=== PATIENT | male | born 1985 | race Two or more races ===

== ENCOUNTER → 2016-08-24 | Outpatient (CLI) | payer BC ==
[2016-08-24 15:58] LABS: Urine RBC None Seen /hpf (0 - 3)
[2016-08-24 16:22] LABS: Urine Bilirubin Negative (Negative); Urine Blood Negative /uL (Negative); Urine Color Yellow (Yellow); Urine Glucose Normal (Normal); Urine Ketone Negative (Negative); Urine Nitrite Negative (Negative); Urine Urobilinogen Normal (Negative)
[2016-08-24 16:27] LABS: BUN/Creatinine Ratio 16.4; Calcium 8.6 mg/dL (8.5-10.1); Potassium 3.6 mmol/L (3.5-5.1); Total Protein 7.7 g/dL (6.4-8.2); Uric Acid 7.4 mg/dL (3.5-7.2)
[2016-08-24 16:39] LABS: Basophils # (auto) 0 uL; Basophils % (auto) 0.7 % (0.0-2.0); Eosinophils # (auto) 0.2 uL; Eosinophils % (auto) 3.1 % (0.0-7.0); Hematocrit 43.8 % (41.0-53.0); Hemoglobin 14.9 g/dL (13.5-17.5); Lymphocytes # (auto) 2.2 uL; Lymphocytes % (auto) 38.8 % (10.0-50.0); Mean Corpuscular Hemoglobin 30.1 pg (28.0-32.0); Mean Corpuscular Hgb Conc. 34.1 g/dL (32.0-36.0); Mean Corpuscular Volume 88.5 fL (80.0-100.0); Mean Platelet Volume 7.9 fL (7.4-10.4); Monocytes # (auto) 0.5 uL; Monocytes % (auto) 8.6 % (0.0-12.0); Neutrophils # (auto) 2.7 uL; Neutrophils % (auto) 48.8 % (37.0-80.0); Platelet Count (auto) 296 10^3/uL (140-450); Red Cell Distribution Width 12.9 % (11.6-16.0); White Blood Cell 5.6 10^3/uL (4.4-10.8)
== END | disposition home or self-care (01) ==
LOC: LAB 15:13
DX: Z00.00 Encounter for general adult medical examination without abnormal findings (principal); M25.561 Pain in right knee; Z83.3 Family history of diabetes mellitus
CPT/HCPCS: 36415; 80053; 80061; 81001; 82306; 83036; 84443; 84550; 85025; 85652; 86431; 86592; 86703; 86704; 86706; 86708; 86803; 86900; 86901; 87340

== ENCOUNTER → 2016-11-24 | Outpatient (CLI) | payer BC | END | disposition home or self-care (01) | LOC: LAB 06:41 | DX: Z23 Encounter for immunization (principal) | CPT/HCPCS: 86787 ==

== ENCOUNTER → 2017-06-20 | Outpatient (CLI) | payer OTHER | END | disposition home or self-care (01) | LOC: LAB 11:13 | PROVIDERS: ATTEND Registered Nurse General Practice | DX: Z20.9 Contact with and (suspected) exposure to unspecified communicable disease (principal) | CPT/HCPCS: 36415; 86706; 86735; 86762; 86765 ==

== ENCOUNTER → 2017-11-29 | Outpatient (CLI) | payer BC | END | disposition home or self-care (01) | LOC: LAB 14:28 | PROVIDERS: ATTEND Registered Nurse General Practice | DX: Z20.9 Contact with and (suspected) exposure to unspecified communicable disease (principal) | CPT/HCPCS: 86762 ==

== ENCOUNTER → 2018-03-09 | Outpatient (CLI) | payer OTHER | END | disposition home or self-care (01) | LOC: LAB 14:35 | PROVIDERS: ATTEND Physician Assistant | DX: Z20.9 Contact with and (suspected) exposure to unspecified communicable disease (principal) | CPT/HCPCS: 36415; 86706 ==

== ENCOUNTER 2025-06-13 06:15 | Emergency (ER) | payer BC, MEDICAID ==
[~2025-06-13] VITALS: Ht 175.3 cm; Wt 82.0 kg
[2025-06-13 06:27] VITALS: PULSE 69; RESP 13; O2SAT 97
[2025-06-13] MEDS: HYDROcodone-ACET 10/325MG TAB PO ONE (06:44)
[2025-06-13] MEDS: LIDOCAINE 5% TOPICAL PATCH TOP ONE (06:44)
--- NOTE | 2025-06-13 07:02 | ED.PDOC ---
History of Present Illness HPI Comments 39 y/o M presents with c/c of back pain s/p mechanical fall and injury. Patient reports carrying his child while walking through a flight of stairs when he slipped backwards and landed on his back. Pain is localized to his left side of his mid-back. No lost of consciousness or additional injuries endorsed. No history of blood thinner use or previous pertinent injuries. Chief Complaint: Back Pain Time Seen by MD: 06:10 Reviewed Notes: Nurses Notes, Allergies Allergies: Coded Allergies: No Known Drug Allergy (Unverified Allergy, Unknown, 06/13/25) Information Source: Patient Mode of Arrival: Ambulatory Severity: Moderate Timing: Hours Duration: Since onset Prehospital treatment: None Past Medical History PAST MEDICAL HISTORY: Denies Surgical History: Denies all surgeries Family History Family History: Unknown Social History Lives In: Home All Other Systems: Reviewed and Negative (As per HPI) Physical Exam General Appearance: No Apparent Distress, Normal HEENT: Normal ENT Inspection, Pharynx Normal, TMs Normal Neck: Full Range of Motion, Non-Tender, Normal, Normal Inspection Respiratory: Chest Non-Tender, Lungs Clear, No Accessory Muscle Use, No Respiratory Distress, Normal Breath Sounds Cardiovascular: No Edema, No JVD, No Murmur, No Gallop, Normal Peripheral Pulses, Regular Rate/Rhythm Breast Exam: Deferred Gastrointestinal: No Organomegaly, Non Tender, No Pulsatile Mass, Normal Bowel Sounds, Soft Genitalia: Deferred Pelvic: Deferred Rectal: Deferred Extremities: No calf tenderness, Normal capillary refill, Normal inspection, Normal range of motion, Non-tender, No pedal edema Musculoskeletal : Location: Left Extremity Location: Back Apperance: Normal, Tenderness Neurologic: Alert, cutter down II-XII nml as Tested, No Motor Deficits, Normal Affect, Normal Mood, No Sensory Deficits Cerebellar Function: Normal Reflexes: Normal Skin: Dry, Normal Color, Warm Lymphatic: No Adenopathy Was a procedure done? Was a procedure done?: No Differential Dx Considerations may include: fractures, musculoskeletal pain, contusions, abrasions, sprain, strain, among others X-Ray, Labs, Meds, VS Vital Signs Date Time Temp Pulse Resp B/P (MAP) Pulse Ox O2 Delivery O2 Flow Rate FiO2 06/13/25 07:30 60 18 97 Room Air* 0 21 06/13/25 07:30 98.4 60 18 107/70 (82) 97 98.4 06/13/25 06:29 98.7 69 13 140/93 (109) 97 98.7 06/13/25 06:27 69 13 97 Room Air* 0 21 06/13/25 06:17 98.7 69 14 140/93 98.7 Current Medications Medications (Trade) Dose Ordered Sig/Valentina Route Start Time Stop Time Status Last Admin Lidocaine (Lidoderm 5% Topical Patch) 1 patch ONCE ONCE TOP 06/13/25 06:45 06/13/25 06:46 DC 06/13/25 06:44 Acetaminophen/ Hydrocodone Bitart ([place] 10/325MG Tab) 1 tab ONCE ONCE PO 06/13/25 06:45 06/13/25 06:46 DC 06/13/25 06:44 Ondansetron HCl (Zofran Po) 4 mg ONCE ONCE PO 06/13/25 07:30 06/13/25 07:31 DC 06/13/25 07:28 [place] [id number] Ph: [phone] DIAGNOSTIC IMAGING Diagnostic Imaging Report : [id number] Signed PATIENT: ELLE BLANDON ACCT: [id number] UNIT: [id number] : 1985 LOC: ER ROOM / BED: / AGE / SEX: 39 / M ADM STATUS: REG ER SERVICE 7 ORDERING PHYSICIAN: ELMER BEACH MD PROCEDURE(s): THOSP - SPINE THORACIC 2VIEW REASON: fall ORDER NUMBER(s): [id number], ACCESSION NUMBER(s): [id number] INDICATION: fall, mid back pain TECHNIQUE: 2 views of the thoracic spine were obtained. COMPARISON: None FINDINGS: There is no evidence of fracture, subluxation and/or dislocation. The alignment is anatomical. The paravertebral soft tissues were unremarkable. IMPRESSION: 1. Of the visualized spine, there is no evidence for fracture or subluxation. ATED BY: SHREYAS ARELLANO MD DICTATED DATE/TIME: 06/13/25823 SIGNED BY: SHREYAS ARELLANO MD SIGNED DATE/TIME: 06/13/25823 CC: [place] [id number] Ph: [phone] DIAGNOSTIC IMAGING Diagnostic Imaging Report : [id number] Signed PATIENT: ELLE BLANDON ACCT: [id number] UNIT: [id number] : 1985 LOC: ER ROOM / BED: / AGE / SEX: 39 / M ADM STATUS: REG ER SERVICE 7 ORDERING PHYSICIAN: ELMER BEACH MD PROCEDURE(s): LRIBS - L RIB X RAY REASON: fall ORDER NUMBER(s): [id number], ACCESSION NUMBER(s): [id number] EXAMINATION: XY L RIB X RAY INDICATION: fall COMPARISON: None TECHNIQUE: Frontal view of the chest and 4 views of the left ribs history FINDINGS: No focal consolidation, pleural effusion or significant pneumothorax. Normal cardiomediastinal silhouette. Minimally displaced fractures of the left posterolateral 10th and 9th ribs. IMPRESSION: No acute cardiopulmonary disease. Minimally displaced fractures of the left posterolateral 10th and 11th ribs. ATED BY: SHREYAS ARELLANO MD DICTATED DATE/TIME: 06/13/25822 SIGNED BY: SHREYAS ARELLANO MD SIGNED DATE/TIME: 06/13/25822 CC: Time of 1ST Reevaluation: 06:40 Reevaluation 1ST: Unchanged Patient Education/Counseling: Diagnosis, Treatment, Need For Follow Up Family Education/Counseling: Diagnosis, Treatment, Need For Follow Up Additional Information Previous visits reviewed: N/A Labs ordered and reviewed: N/A Images ordered and reviewed: L rib and thoracic spine X-rays Additional personnel interviewed: Spouse SEPSIS Sepsis Screen Date sepsis recognized/suspect: Jun 13, 2025 Time Sepsis recognized/suspect: 628 Recent Procedure: No On Antibiotic Therapy: No Respiratory Rate >20: No Heart Rate >90: No Temp<36 C (96.8 F) or >38.3 C: No SBP <90 or MAP <65 mmHG: No New Acute Mental Status Change: No Is the patient on CPAP, BIPAP,: No Physician Orders L Rib X Ray (06/13/25 06:38) Spine Thoracic 2view (06/13/25 06:38) Vital Signs Date Time Temp Pulse Resp B/P (MAP) Pulse Ox O2 Delivery O2 Flow Rate FiO2 06/13/25 07:30 60 18 97 Room Air* 0 21 06/13/25 07:30 98.4 60 18 107/70 (82) 97 98.4 06/13/25 06:29 98.7 69 13 140/93 (109) 97 98.7 06/13/25 06:27 69 13 97 Room Air* 0 21 06/13/25 06:17 98.7 69 14 140/93 98.7 Medications Medications Dose Ordered Sig/Valentina Route Start Time Stop Time Status Last Admin Dose Admin Acetaminophen/ Hydrocodone Bitart 1 tab ONCE ONCE PO 06/13/25 06:45 06/13/25 06:46 DC 06/13/25 06:44 Lidocaine 1 patch ONCE ONCE TOP 06/13/25 06:45 06/13/25 06:46 DC 06/13/25 06:44 Ondansetron HCl 4 mg ONCE ONCE PO 06/13/25 07:30 06/13/25 07:31 DC 06/13/25 07:28 Departure 1 Departure Time of Disposition: 09:51 (Patient has a broken 10th and 11th rib. We will discharge patient home with outpatient follow up) Impression: Primary Impression: Ribs, multiple fractures Disposition: 01 HOME / SELF CARE / HOMELESS Condition: Stable Additional Instructions: You broke your 10th and 11th rib. These usually heal over six weeks You can use lidocaine patches for comfort. For pain you can take the followinam: Ibuprofen 400mg with food Noon: Acetaminophen 1000mg 4pm: Ibuprofen 400mg with food 8pm: Acetaminophen 1000mg You should follow up with your regular doctor within one week to ensure you are doing better. If your symptoms worsen or you have any other concerns then please return to the ER. e-Prescriptions Hydrocodone-Acetaminophen (Hydrocodone/Acetaminophen 5-325 mg) 1 Tab Tab 1 TAB PO QID PRN for 5 Days, #20 TAB Prov: ELMER BEACH MD 06/13/25 Discharged With: Spouse Critical Care Note Critical Care Time?: No Stability Stability form required: No Heart Score Heart Score: Heart Score Response (Comments) Value History N/A 0 EKG N/A 0 Age N/A 0 Risk Factors N/A 0 Troponin N/A 0 Total 0 I personally scribed for ELMER BEACH MD ([email or web address]) on 06/13/25 at 07:01. Electronically submitted by Herminio Olivares ([email or web address]). I personally scribed for ELMER BEACH MD ([email or web address]) on 06/13/25 at 08:47. Electronically submitted by Herminio Olivares ([email or web address]). ELMER BEACH MD Jun 13, 2025 07:01
[2025-06-13] MEDS: ONDANSETRON ODT 4 MG TAB PO ONE (07:28)
[2025-06-13 07:30] VITALS: PULSE 60; RESP 18; TEMP 98.4; O2SAT 97
--- NOTE | 2025-06-13 08:25 | DVH ---
EXAMINATION: XY L RIB X RAY INDICATION: fall COMPARISON: None TECHNIQUE: Frontal view of the chest and 4 views of the left ribs history FINDINGS: No focal consolidation, pleural effusion or significant pneumothorax. Normal cardiomediastinal silhouette. Minimally displaced fractures of the left posterolateral 10th and 9th ribs. IMPRESSION: No acute cardiopulmonary disease. Minimally displaced fractures of the left posterolateral 10th and 11th ribs.
--- NOTE | 2025-06-13 08:26 | DVH ---
INDICATION: fall, mid back pain TECHNIQUE: 2 views of the thoracic spine were obtained. COMPARISON: None FINDINGS: There is no evidence of fracture, subluxation and/or dislocation. The alignment is anatomical. The paravertebral soft tissues were unremarkable. IMPRESSION: 1. Of the visualized spine, there is no evidence for fracture or subluxation.
[2025-06-13] MEDS ORDERED: HYDR1TAB97 PO (09:54)
[2025-06-13 10:08] VITALS: BP 110/76; PULSE 64; RESP 16; O2SAT 98
== END 2025-06-13 10:15 | disposition home or self-care (01) ==
LOC: ER 06:15 → EEVIPCON 06:15 → ER 10:15
DX: S22.42XA Multiple fractures of ribs, left side, initial encounter for closed fracture (principal); X50.0XXA Overexertion from strenuous movement or load, initial encounter; Y93.89 Activity, other specified; Y92.89 Other specified places as the place of occurrence of the external cause; Y99.8 Other external cause status
CPT/HCPCS: 71101; 72070; 99284; Q0162

== ENCOUNTER → 2025-06-24 | Outpatient (CLI) | payer BC, MEDICAID ==
[~2025-06-24] MED LIST: HYDR1TAB97 PO
[2025-06-24 10:25] LABS: Hematocrit 42.7 % (41.0-53.0); Hemoglobin 15.0 g/dL (13.5-17.5); Mean Corpuscular Hemoglobin 30.7 pg (28.0-32.0); Mean Corpuscular Volume 87.4 fL (80.0-100.0); Nucleated Red Blood Cells % 0.0 %
[2025-06-24 10:26] LABS: Urine Protein, UAD Negative (Negative)
[2025-06-24 10:52] LABS: Alkaline Phosphatase 96 U/L (46-116); Anion Gap 8 (5-15); BUN/Creatinine Ratio 12.7 (10.0-20.0); Blood Urea Nitrogen 10 mg/dL (9-23); Calcium 10.0 mg/dL (8.7-10.4); Carbon Dioxide 30 mmol/L (20-31); Chloride 103 mmol/L (98-107); Glucose 95 mg/dL (74-106); Potassium 4.7 mmol/L (3.5-5.1); Sodium 141 mmol/L (136-145); Total Protein 7.7 g/dL (5.7-8.2)
[2025-06-24 10:53] LABS: Alanine Aminotransferase 63 U/L (7-40); Albumin 4.8 g/dL (3.2-4.8); Bilirubin, Total 0.9 mg/dL (0.2-1.0); Cholesterol 237 mg/dL (< 200); HDL Cholesterol 44 mg/dL (40-59); Triglycerides 155 mg/dL (< 150)
== END | disposition home or self-care (01) ==
LOC: LAB 09:48
PROVIDERS: ATTEND Nurse Practitioner Family
DX: E78.49 Other hyperlipidemia (principal); E61.2 Magnesium deficiency; R68.89 Other general symptoms and signs; R94.6 Abnormal results of thyroid function studies; E79.0 Hyperuricemia without signs of inflammatory arthritis and tophaceous disease; R82.90 Unspecified abnormal findings in urine; R82.79 Other abnormal findings on microbiological examination of urine; D51.9 Vitamin B12 deficiency anemia, unspecified
CPT/HCPCS: 36415; 80053; 80061; 81001; 82306; 82607; 82746; 83036; 84443; 85025; 87086